=== PATIENT | male | born 1970 | race Caucasian/White ===

== ENCOUNTER 2019-02-11 15:11 | Emergency (ER) | payer OTHER ==
[~2019-02-11] VITALS: Ht 172.7 cm; Wt 86.2 kg
[~2019-02-11 15:11] MED LIST: FLOMAX0.4 MG PO; HYDROCODONE-APA1 TA1 PO; NOHOMEMEDICATIONS; PERCOCET 7.5-31 EACH PO; ZOFRAN ODT4 MG PO; ZOFRAN4 MG PO
[2019-02-11] MEDS ORDERED: TESSALON PERLE100 M1 PO (15:23)
[2019-02-11] MEDS ORDERED: PAXIL10 MG PO (15:23)
[2019-02-11] MEDS ORDERED: MUSCLE RELAXER (15:24)
[2019-02-11 15:45] LABS: HEMATOCRIT 44.4 % (42.0-52.0); HEMOGLOBIN 15.5 gm/dL (14.0-18.0); MCH 31.2 pg (26.0-34.0); MCHC 34.9 g/dL (28.0-37.0); MCV 89.3 fL (80.0-100.0); MPV 8.2 fl. (7.2-11.1); NUCLEATED RBCS 0 /100WBC; PLATELET COUNT* 199 thou/uL (150-400); RBC 4.97 mil/uL (4.50-6.00); RDW-CV 12.9 % (10.5-14.5); WBC 5.6 thou/uL (4.0-11.0)
[2019-02-11 16:10] LABS: ABSOLUTE LYMPHOCYTES 0.4 thou/uL (0.8-5.3); ABSOLUTE MONOCYTES 0.3 thou/uL (0.0-1.2); ABSOLUTE NEUTROPHILS 4.9 thou/uL (1.6-8.1); PLATELET ESTIMATE ADEQUATE
[2019-02-11 16:13] LABS: ALBUMIN 3.4 g/dL (3.4-5.0); CALCIUM 8.6 mg/dL (8.5-10.1); CREATININE 1.1 mg/dL (0.6-1.3); POTASSIUM 4.4 mmol/L (3.5-5.1); TOTAL BILIRUBIN 0.3 mg/dL (<0.1-1.0); TOTAL PROTEIN 7.7 g/dL (6.4-8.2)
[2019-02-11] MEDS ORDERED: PROMETH-CODEIN 65 ML PO (17:20)
[2019-02-11] MEDS ORDERED: ONDANSETRON HCL4 M2 PO (17:20)
[2019-02-11] MEDS ORDERED: HYDROXYZINE HCL25 M2 PO (17:20)
[2019-02-11 17:50] VITALS: BP 111/66
== END 2019-02-11 17:52 | disposition home or self-care (01) ==
LOC: M.ERS 15:11
PROVIDERS: Nurse Practitioner Family
DX: J11.1 Influenza due to unidentified influenza virus with other respiratory manifestations (principal); R11.2 Nausea with vomiting, unspecified; R19.7 Diarrhea, unspecified; F17.210 Nicotine dependence, cigarettes, uncomplicated; Z88.1 Allergy status to other antibiotic agents; Z88.0 Allergy status to penicillin; Z88.2 Allergy status to sulfonamides